=== PATIENT | female | born 1945 | race Hispanic/Latino ===

== ENCOUNTER 2018-07-30 22:32 | Emergency (ER) | payer MEDICARE ==
[2018-07-30 22:47] VITALS: TEMP 98.6
[2018-07-30 23:03] VITALS: PULSE 93; RESP 25; O2SAT 95
--- NOTE | 2018-07-30 23:04 | C.PDOC ---
History Of Present Illness 73 year old female with Hx of HTN, on multiple medications that she is compliant with, presents with elevated blood pressure for the past 3 days. She reports associated bony type pain to the back of her neck radiating down her left arm and notes her ankles have been swollen. Denies chest pain or SOB. Time Seen by Provider: 07/30/18 22:51 Chief Complaint (Nursing): High Blood Pressure History Per: Patient History/Exam Limitations: no limitations Onset/Duration Of Symptoms: Days (3) Current Symptoms Are (Timing): Still Present Associated Symptoms: Other (Neck pain) Quality Of Symptoms: Asymptomatic Exacerbating Factor(s): Pos: None Recent travel outside of the [place]: No Past Medical History Reviewed: Historical Data, Nursing Documentation, Vital Signs Vital Signs: Last Vital Signs Temp 98.6 F 07/30/18 22:41 Pulse 93 H 07/30/18 23:01 Resp 25 H 07/30/18 23:01 BP 192/87 H 07/30/18 23:01 Pulse Ox 95 07/30/18 23:01 - Medical History PMH: COPD (?), HTN Denies: Chronic Kidney Disease Family History: States: No Known Family Hx - Social History Hx Alcohol Use: No Hx Substance Use: No - Immunization History Hx Tetanus Toxoid Vaccination: No Hx Influenza Vaccination: No Hx Pneumococcal Vaccination: No Review Of Systems Constitutional: Negative for: Fever, Chills Cardiovascular: Negative for: Chest Pain, Palpitations Respiratory: Negative for: Cough, Shortness of Breath Gastrointestinal: Negative for: Nausea, Vomiting Musculoskeletal: Positive for: Neck Pain Neurological: Negative for: Weakness, Numbness Physical Exam - Physical Exam Appears: Non-toxic Skin: Normal Color, Warm, Dry Head: Atraumatic, Normacephalic Eye(s): bilateral: Normal Inspection Oral Mucosa: Moist Neck: Normal, No Midline Cervical Tenderness, No Paracervical Tenderness, Supple Chest: Symmetrical, No Tenderness Cardiovascular: Rhythm Regular Respiratory: Normal Breath Sounds, No Rales, No Rhonchi, No Wheezing Gastrointestinal/Abdominal: Soft, No Tenderness Back: No Vertebral Tenderness, No Paraspinal Tenderness Extremity: Normal ROM (x4), Other (+1 pitting to lower legs and feet) Neurological/Psych: Oriented x3, Normal Speech, Normal Motor, Normal Sensation Gait: Steady ED Course And Treatment - Laboratory Results Result Diagrams: 07/30/18 23:16 07/30/18 23:16 Lab Interpretation: Abnormal (Hgb 16.4, HCO3 33, Glucose 284) ECG: Interpreted By Me ECG Rhythm: Sinus Rhythm, Nonspecific Changes ECG Interpretation: No Acute Changes O2 Sat by Pulse Oximetry: 95 (Room air) Pulse Ox Interpretation: Normal - Radiology CXR: Interpreted by Me CXR Interpretation: Yes: Other (diffuse interstitial changes) - Other Rad Cervical spine X-Ray: Interpreted by Me Interpretation: No acute changes. Normal soft tissue Progress Note: EKG, blood work, urinalysis, CXR, cervical spine x-ray ordered. Lasix and metoprolol administered. Reevaluation Time: 00:08 Reassessment Condition: Improved (BP decreased to 192/87.) - Physician Consult Information Time Consulting Physician Contacted: 00:13 Physician Contacted: Tricia Massey Outcome Of Conversation: Advised patient to be admitted for uncontrolled hypertension. She is refusing admission at this time. States that she has a disabled at home that she is concerned about. Understands that her blood pressure is still elevated and she is a stroke and AR risk. She prefers to see DR Jha in the office tomorrow but will return if symptoms worsen. Against Medical Advice - AMA Patient Left Against Medical Advice: The patient declines admission to the hospital and wishes to leave the Emergency Department. This action is against my medical advice. This decision was made with informed refusal. The patient was told that admission to the hospital is necessary. Explanation of the reasons why were discussed. The risks of leaving were explained to the patient and include, but are not limited to, worsening of known or currently unknown conditions, permanent disability and from undiagnosed or untreated conditions. The patient has the capacity to make this informed decision and understands my explanation of the current medical problem and risks of leaving. The patient voluntarily accepts these risks and signed an AMA form documenting our conversation. The patient was given the opportunity to ask questions and reconsider. The pa tient was encouraged to return to the Emergency Department at any time for further care. Disposition Counseled Patient/Family Regarding: Studies Performed, Diagnosis, Need For Followup - Disposition Referrals: Hermilo Jha MD [Medical Doctor] - Disposition: AGAINST MEDICAL ADVICE Disposition Time: 00:15 Condition: IMPROVED Instructions: High Blood Pressure in Adults, Generalized Neck Pain Forms: [employer] (Kinyarwanda) - Clinical Impression Clinical Impression: Hypertension, Neck pain - Scribe Statement The provider has reviewed the documentation as recorded by the Scribjaime Aguilar All medical record entries made by the Scribe were at my direction and personally dictated by me. I have reviewed the chart and agree that the record accurately reflects my personal performance of the history, physical exam, medical decision making, and the department course for this patient. I have also personally directed, reviewed, and agree with the discharge instructions and disposition.
[2018-07-30 23:19] LABS: BASO # 0.1 K/uL (0.0-0.2); BASO % 0.6 % (0.0-2.0); EOS # 0.2 K/uL (0.0-0.7); EOS % 1.9 % (0.0-4.0); HEMOGLOBIN 16.4 g/dL (11.0-16.0); LYMPH # 1.5 K/uL (1.0-4.3); LYMPH % 15.2 % (20.0-40.0); MEAN CELL VOLUME 96.8 fL (81.0-99.0); MEAN CORPUSCULAR HEMOGLOBIN 31.3 pg (27.0-31.0); MEAN CORPUSCULAR HGB CONC 32.3 g/dL (33.0-37.0); MEAN PLATELET VOLUME 8.4 fL (7.2-11.7); MONO % 9.8 % (0.0-10.0); NEUT # 7.2 K/uL (1.8-7.0); NEUT % 72.5 % (50.0-75.0); RBC 5.23 Mil/uL (3.80-5.20); RED CELL DISTRIBUTION WIDTH 15.1 % (11.5-14.5)
[2018-07-30 23:31] LABS: ALB/GLOB RATIO 1.3 (1.0-2.1); ALBUMIN 4.1 g/dL (3.5-5.0); ALT/SGPT 31 U/L (9-52); AST/SGOT 29 U/L (14-36); BLOOD UREA NITROGEN 11 mg/dL (7-17); CALCIUM 8.4 mg/dl (8.6-10.4); GFR NON-AFRICAN AMERICAN > 60
[2018-07-30 23:35] LABS: SQUAMOUS EPITHIAL 1 /hpf (0-5); URINE BILIRUBIN NEGATIVE (NEGATIVE); URINE BLOOD 1+ (NEGATIVE); URINE CLARITY Clear (Clear); URINE COLOR Straw (YELLOW); URINE GLUCOSE (UA) 3+ mg/dL (Normal); URINE LEUKOCYTE ESTERASE TRACE Leu/uL (Negative); URINE PROTEIN 1+ mg/dL (NEGATIVE); URINE UROBILINOGEN NORMAL mg/dL (0.2-1.0)
[2018-07-31 00:12] VITALS: BP 172/83
--- NOTE | 2018-07-31 08:21 | RAD ---
Date of service: 07/30/2018 PROCEDURE: Cervical Spine Radiographs. HISTORY: Pain. COMPARISON: None available. FINDINGS: BONES: Alignment maintained. No fracture. Dens Intact. Minimal spondylosis C5-6 DISC SPACES: C5-6 disc space narrowing SOFT TISSUES: There is coarse prominent calcifications/ ossifications-block like at the thyroid cartilage level the lateral view of unclear significance and origin. Patient is nearly edentulous. OTHER FINDINGS: Small cervical rib formation suggested. Prominent hilar soft tissues-may be related to technique and prominent vessels. Consider chest x-ray PA and lateral IMPRESSION: No fracture or osseous lytic lesions. Mild cervical spondylosis and degenerative disc disease--C5-6 level. Coarse prominent calcifications/ossifications-block like-thyroid cartilage level per lateral view origin and significance indeterminate. Consider CT of the neck without IV contrast enhancement Prominent hilar soft tissues noted semi-may be related to technique and prominent vessels. Other pathology-not excluded. Consider chest x-ray PA and lateral Comments: Study marked for PA review .
--- NOTE | 2018-07-31 10:38 | RAD ---
HISTORY: SOB COMPARISON: Chest x-ray performed 02/13/11 TECHNIQUE: Chest, one view. FINDINGS: LUNGS: Hyperinflation. Mild right upper lobe and left lower lobe infiltrates. Biapical pleural thickening and granulomatous changes. Questionable 8 mm nodular opacity projecting over the right anterior 2nd rib. Please note that chest x-ray has limited sensitivity for the detection of pulmonary masses. PLEURA: No significant pleural effusion identified. No definite pneumothorax . CARDIOVASCULAR: Borderline cardiomegaly. Atherosclerotic calcifications of the aorta. OSSEOUS STRUCTURES: Osseous demineralization. Degenerative changes. VISUALIZED UPPER ABDOMEN: Flattening of the left hemidiaphragm. Elevation of the right hemidiaphragm. OTHER FINDINGS: None. IMPRESSION: Mild right upper and left lower lobe infiltrates consistent with pneumonia; correlate clinically. Hyperinflation may be seen in setting of COPD. Biapical pleural thickening and granulomatous changes. Questionable 8 mm nodular opacity projecting over the right anterior 2nd rib. Finding may reflect confluence of shadows however pulmonary nodule is not excluded. Follow-up CT of the chest upon completion of treatment for acute symptoms recommended if indicated. Study marked for PA review.
--- NOTE | 2018-07-31 20:07 | CARD ---
APPROVED REPORT Date of service: 07/30/2018 EKG Measurement Heart [id number] <Conclusion> Normal sinus rhythm Possible Left atrial enlargement Left anterior fascicular block Canoot exclude old Inferior HI Nonspecific ST and T wave abnormality Abnormal ECG
== END 2018-07-31 00:24 | disposition left against medical advice (07) ==
LOC: C.ER 22:32
DX: I10 Essential (primary) hypertension (principal); M54.2 Cervicalgia
CPT/HCPCS: 71045; 72052; 80053; 81001; 84484; 85025; 93005; 96374; 99285; J1940